=== PATIENT | male | born 1985 | race Two or more races ===

== ENCOUNTER 2021-08-27 14:12 | Emergency (ER) | payer OTHER ==
[2021-08-27 14:33] VITALS: BP 115/72; PULSE 70; TEMP 98.2; BMI 24.5
[2021-08-27] MEDS ORDERED: DIPHTH,PERTUSS(ACELL),TET 0.5 ML DISP.SYRIN IM ONE ×2 (15:23→15:24)
== END 2021-08-27 15:36 | disposition home or self-care (01) ==
LOC: JERFT 14:12 → JER 14:12 → JERFT 15:36
PROC: 3E0234Z Introduction of Serum, Toxoid and Vaccine into Muscle, Percutaneous Approach (ICD-10-PCS; principal; 2021-08-27)
DX: S61.411A Laceration without foreign body of right hand, initial encounter (principal); W26.8XXA Contact with other sharp object(s), not elsewhere classified, initial encounter
CPT/HCPCS: 90471; 90715; 99284-25

== ENCOUNTER 2021-09-08 15:40 | Emergency (ER) | payer OTHER ==
[2021-09-08 15:56] VITALS: BP 107/74; PULSE 64; TEMP 97.8; BMI 27.0
[2021-09-08] MEDS ORDERED: ONDANSETRON 4 MG/2 ML VIAL IVPUSH ONE ×2 (17:31→18:34)
[2021-09-08] MEDS ORDERED: SODIUM CHLORIDE 1,000 ML IV STA ×2 (17:31→18:52)
[2021-09-08] MEDS ORDERED: ONDANSETRON 4 MG/2 ML VIAL ONE ×2 (17:52→18:51)
[2021-09-08 18:09] LABS: BASO % 0.5 % (0-2.0); HEMATOCRIT 42.6 % (35.4-49); HEMOGLOBIN 14.7 GM/dL (11.7-16.9); LYMPH % 15.5 % (8-40); MCH 30.3 pg (25.7-33.7); MCHC 34.6 g/dl (32.0-35.9); MEAN CELL VOLUME 87.6 fl (80-96); MEAN PLT VOLUME 7.7 fl (7.5-11.1); MONO % 6.2 % (3.8-10.2); NEUT % 77.8 % (42.8-82.8); PLATELET COUNT 392 10^3/uL (134-434); RBC 4.86 M/mm3 (4.00-5.60); RDW 13.6 % (11.9-15.9); WHITE BLOOD COUNT 9.9 K/mm3 (4.0-10.0)
[2021-09-08 18:30] LABS: CHLORIDE 105 mmol/L (98-107); SODIUM 140 mmol/L (136-145)
[2021-09-08 18:33] LABS: ALBUMIN 4.8 g/dl (3.4-5.0); ANION GAP 9 MMOL/L (8-16); BLOOD UREA NITROGEN 14.5 mg/dL (7-18); CALCIUM 10.4 mg/dL (8.5-10.1); CO2 27 mmol/L (21-32); GLUCOSE,RANDOM 116 mg/dL (74-106); LIPASE 67 U/L (73-393)
[2021-09-08 18:36] LABS: CREATININE 1.1 mg/dL (0.55-1.3); EPI CELLS 24 /uL (0-25.1); HYALINE CASTS 7 /uL (0-3.1); PH,URINE >= 9.0 (5.0-8.0); SGOT/AST 21 U/L (15-37); SGPT/ALT 40 U/L (13-61); URINE APPEARANCE CLEAR; URINE BACTERIA 15 /uL (0-1359); URINE BILIRUBIN NEGATIVE (NEGATIVE); URINE COLOR YELLOW; URINE GLUCOSE (UA) NEGATIVE (NEGATIVE); URINE KETONE 1+ (NEGATIVE); URINE LEUK ESTERASE NEGATIVE (NEGATIVE); URINE NITRITE NEGATIVE (NEGATIVE); URINE PROTEIN 2+ (NEGATIVE); URINE RBC 11 /uL (0-23.9); URINE WBC 5 /uL (0-25.8)
[2021-09-08 18:38] LABS: BILIRUBIN,TOTAL 1.1 mg/dL (0.2-1); TOT PROT 7.9 g/dl (6.4-8.2)
[2021-09-08 18:39] LABS: ALK PHOS 93 U/L (45-117)
[2021-09-08] MEDS ORDERED: FAMOTIDINE 20 MG/50 ML IVPB 20 MG/50 ML MG IVPB ONE ×2 (18:52→19:08)
[2021-09-08 18:57] LABS: COCAINE, UR NEGATIVE (NEGATIVE); OPIATES, URI NEGATIVE (NEGATIVE); PHENCYCLIDINE,URINE NEGATIVE (NEGATIVE); URINE BARBITURATES NEGATIVE (NEGATIVE)
[2021-09-08 19:24] LABS: METHADONE, UR NEGATIVE (NEGATIVE); URINE AMPHETAMINES NEGATIVE (NEGATIVE); URINE BENZODIAZEPINES NEGATIVE (NEGATIVE)
[2021-09-08] MEDS ORDERED: METOCLOPRAMIDE HCL INJECTION 10 MG/2 ML VIAL ONE (20:30)
[2021-09-08] MEDS ORDERED: METOCLOPRAMIDE HCL INJECTION 10 MG/2 ML VIAL IVPB ONE (20:33)
== END 2021-09-08 23:14 | disposition home or self-care (01) ==
LOC: JER 15:40
PROC: 3E03329 Introduction of Other Anti-infective into Peripheral Vein, Percutaneous Approach (ICD-10-PCS; principal; 2021-09-08)
PROC: 3E033GC Introduction of Other Therapeutic Substance into Peripheral Vein, Percutaneous Approach (ICD-10-PCS; 2021-09-08)
PROC: 3E033GC Introduction of Other Therapeutic Substance into Peripheral Vein, Percutaneous Approach (ICD-10-PCS; 2021-09-08)
PROC: 3E0337Z Introduction of Electrolytic and Water Balance Substance into Peripheral Vein, Percutaneous Approach (ICD-10-PCS; 2021-09-08)
PROC: 3E0337Z Introduction of Electrolytic and Water Balance Substance into Peripheral Vein, Percutaneous Approach (ICD-10-PCS; 2021-09-08)
DX: R11.2 Nausea with vomiting, unspecified (principal)
CPT/HCPCS: 36415; 80053; 80307; 81003; 83690; 85025; 99284-25

== ENCOUNTER 2023-03-29 09:29 | Emergency (ER) | payer OTHER ==
[2023-03-29 09:38] VITALS: BP 122/78; PULSE 68; RESP 18; TEMP 98.3; BMI 24.3
[2023-03-29] MEDS ORDERED: LIDOCAINE 5% TOPICAL PATCH TP ONE (10:31)
[2023-03-29] MEDS ORDERED: KETOROLAC TROMETHAMINE 30 MG/1 ML VIAL IM ONE (10:31)
[2023-03-29] MEDS ORDERED: LIDOCAINE 5% TOPICAL PATCH ONE (10:43)
[2023-03-29] MEDS ORDERED: KETOROLAC TROMETHAMINE 60 MG/2 ML VIAL ONE (10:43)
[2023-03-29] MEDS ORDERED: LIDOCAINE PATCH REMOVAL MC SCH (22:00)
== END 2023-03-29 11:42 | disposition home or self-care (01) ==
LOC: JERFT 09:29
PROC: 3E0233Z Introduction of Anti-inflammatory into Muscle, Percutaneous Approach (ICD-10-PCS; principal; 2023-03-29)
DX: S39.012A Strain of muscle, fascia and tendon of lower back, initial encounter (principal); X50.0XXA Overexertion from strenuous movement or load, initial encounter
CPT/HCPCS: 72100-TC-FY; 99284-25

== ENCOUNTER 2023-11-29 09:51 | Observation (INO) | payer OTHER ==
[2023-11-29] MEDS ORDERED: FAMOTIDINE 20 MG/50 ML IVPB 20 MG/50 ML MG IVPB ONE (10:28)
[2023-11-29] MEDS ORDERED: ONDANSETRON 4 MG/2 ML VIAL ONE (10:28)
[2023-11-29] MEDS ORDERED: ACETAMINOPHEN INJECTION 100 ML IVPB ONE ×2 (10:28→12:18)
[2023-11-29] MEDS: ONDANSETRON 4 MG/2 ML VIAL IVPUSH ONE (10:39)
[2023-11-29] MEDS: SODIUM CHLORIDE 0.9% 500 ML INFUS.BAG IV ONE (10:39)
[2023-11-29] MEDS: FAMOTIDINE 20 MG/50 ML IVPB 20 MG/50 ML MG IVPB ONE (10:39)
[2023-11-29 11:16] LABS: BASO % 0.2 % (0-2.0); HEMATOCRIT 44.6 % (35.4-49); LYMPH % 15.6 % (8-40); MCH 29.7 pg (25.7-33.7); MCHC 33.5 g/dl (32.0-35.9); MEAN CELL VOLUME 88.5 fl (80-96); NEUT % 77.2 % (42.8-82.8); PLATELET COUNT 348 10^3/uL (134-434); RBC 5.04 M/mm3 (4.00-5.60); RDW 13.6 % (11.9-15.9); WHITE BLOOD COUNT 13.1 K/mm3 (4.0-10.0)
[2023-11-29 11:45] LABS: POTASSIUM 3.5 mmol/L (3.5-5.1)
[2023-11-29 11:48] LABS: BLOOD UREA NITROGEN 16.3 mg/dL (7-18); CALCIUM 9.5 mg/dL (8.5-10.1)
[2023-11-29 11:49] LABS: ALBUMIN 4.2 g/dl (3.4-5.0)
[2023-11-29 11:51] LABS: CREATININE 1.2 mg/dL (0.55-1.3)
[2023-11-29 11:52] LABS: BILIRUBIN,TOTAL 2.5 mg/dL (0.2-1); TOT PROT 7.1 g/dl (6.4-8.2)
[2023-11-29] MEDS: ACETAMINOPHEN 1000 MG/100 ML BAG IVPB ONE ×2 (12:17→22:13)
[2023-11-29] MEDS: METOCLOPRAMIDE HCL INJECTION 10 MG/2 ML VIAL IVPUSH ONE (14:28)
[2023-11-29] MEDS ORDERED: METOCLOPRAMIDE HCL INJECTION 10 MG/2 ML VIAL ONE (14:28)
[2023-11-29] MEDS: morphine CARPU-JECT 2 MG/1 ML DISP.SYRIN IVPUSH ONE (17:57)
[2023-11-29 20:14] LABS: BILIRUBIN,DIRECT 0.4 mg/dL (0.0-0.2)
[2023-11-29 22:01] LABS: URINE APPEARANCE CLEAR; URINE BILIRUBIN NEGATIVE (NEGATIVE); URINE COLOR YELLOW; URINE GLUCOSE (UA) NEGATIVE (NEGATIVE); URINE KETONE 2+ (NEGATIVE); URINE LEUK ESTERASE NEGATIVE (NEGATIVE); URINE NITRITE NEGATIVE (NEGATIVE); URINE PROTEIN TRACE (NEGATIVE)
[2023-11-29] MEDS: ONDANSETRON 4 MG/2 ML VIAL IVPB ONE (22:12)
[2023-11-29] MEDS: PANTOPRAZOLE SODIUM 40 MG VIAL IVPUSH ONE (22:12)
[2023-11-29] MEDS: MAG HYDROX/AL HYDROX/SIMETH 30 ML UNIT-DOSE CUP PO ONE (22:12)
[2023-11-29] MEDS: SODIUM CHLORIDE 1,000 ML IV STA (22:14)
[2023-11-29 22:23] LABS: METHADONE, UR NEGATIVE (NEGATIVE); PHENCYCLIDINE,URINE NEGATIVE (NEGATIVE); URINE AMPHETAMINES NEGATIVE (NEGATIVE); URINE BENZODIAZEPINES NEGATIVE (NEGATIVE)
[2023-11-29 22:24] LABS: COCAINE, UR NEGATIVE (NEGATIVE); URINE BARBITURATES NEGATIVE (NEGATIVE)
[2023-11-29 22:36] LABS: OPIATES, URI POSITIVE (NEGATIVE)
[2023-11-30 01:12] VITALS: BMI 23.8
[2023-11-30] MEDS ORDERED: ACETAMINOPHEN 1000 MG/100 ML BAG IVPB PRN (04:00)
[2023-11-30] MEDS: SODIUM CHLORIDE 1,000 ML IV SCH (05:45)
[2023-11-30] MEDS: ACETAMINOPHEN 1000 MG/100 ML BAG IVPB PRN (05:45)
[2023-11-30] MEDS: ONDANSETRON 4 MG/2 ML VIAL IVPUSH PRN (05:51)
[2023-11-30] MEDS ORDERED: ACETAMINOPHEN 325 MG TABLET (FP) PO PRN (08:51)
[2023-11-30 09:12] VITALS: BP 154/84; PULSE 51; RESP 19; TEMP 98.7
[2023-11-30 09:26] LABS: HEMATOCRIT 41.6 % (35.4-49); HEMOGLOBIN 13.8 GM/dL (11.7-16.9); MCH 29.6 pg (25.7-33.7); MCHC 33.1 g/dl (32.0-35.9); MEAN CELL VOLUME 89.6 fl (80-96); MEAN PLT VOLUME 7.9 fl (7.5-11.1); PLATELET COUNT 322 10^3/uL (134-434); RBC 4.64 M/mm3 (4.00-5.60); RDW 13.9 % (11.9-15.9); WHITE BLOOD COUNT 13.1 K/mm3 (4.0-10.0)
[2023-11-30 09:56] LABS: POTASSIUM 3.3 mmol/L (3.5-5.1)
[2023-11-30 09:59] LABS: CALCIUM 8.5 mg/dL (8.5-10.1)
[2023-11-30 10:00] LABS: MAGNESIUM 2.1 mg/dL (1.8-2.4)
[2023-11-30 10:01] LABS: ALBUMIN 3.8 g/dl (3.4-5.0)
[2023-11-30 10:03] LABS: PHOSPHOROUS 2.2 mg/dL (2.5-4.9)
[2023-11-30 10:04] LABS: CREATININE 1.1 mg/dL (0.55-1.3)
[2023-11-30 10:07] LABS: TOT PROT 6.6 g/dl (6.4-8.2)
[2023-11-30] MEDS: POTASSIUM CHLORIDE TABS 20 MEQ TABLET.ER (FP) PO ONE (10:16)
[2023-11-30] MEDS: FAMOTIDINE 20 MG/50 ML IVPB 20 MG/50 ML MG IVPB SCH (10:18)
[2023-11-30] MEDS: ACETAMINOPHEN 325 MG TABLET (FP) PO PRN (11:33)
[2023-11-30] MEDS: NAPH,MB-DB/K PH,MBDB POWDER PACKET PO ONE (11:33)
== END 2023-11-30 14:08 | disposition home or self-care (01) ==
LOC: JER 09:51 → JERBED 17:21 → UNDOADMOB 17:21 → J5S 18:21 → JERBED 18:21 → INTOOBSV 11-30 04:09 → OBSVTOIN 11-30 04:09 → J5S 11-30 10:22 → JERBED 11-30 10:22
PROVIDERS: ADMIT Internal Medicine; ATTEND Nurse Practitioner Acute Care
PROC: 3E033NZ Introduction of Analgesics, Hypnotics, Sedatives into Peripheral Vein, Percutaneous Approach (ICD-10-PCS; principal; 2023-11-30)
PROC: 3E033GC Introduction of Other Therapeutic Substance into Peripheral Vein, Percutaneous Approach (ICD-10-PCS; 2023-11-30)
DX: F12.288 Cannabis dependence with other cannabis-induced disorder (principal); R11.2 Nausea with vomiting, unspecified; F41.9 Anxiety disorder, unspecified
CPT/HCPCS: 36415; 74177-TC; 80053; 80307; 81003; 82248; 83690; 83735; 84100; 85025; 85027; 87086; 93005; 93010; 96361; 96365; 96366; 96375; 96376; 99285-25; G0378; J0131; Q9967

== ENCOUNTER 2025-03-16 22:45 | Emergency (ER) | payer OTHER ==
[2025-03-16 22:59] VITALS: BP 129/86; PULSE 100; RESP 18; TEMP 98.3; BMI 21.2
[2025-03-17] MEDS ORDERED: HALOPERIDOL LACTATE 5 MG/ML ONE (00:25)
[2025-03-17] MEDS: HALOPERIDOL LACTATE 5 MG/ML IVPUSH ONE (00:33)
[2025-03-17 00:44] LABS: MCHC 34.8 g/dl (32.3-36.5); MEAN CELL VOLUME 86.9 fl (79.0-92.2); MEAN PLT VOLUME 9.4 fl (9.4-12.4); RDW 13.0 % (12.0-15.6)
[2025-03-17 01:11] LABS: CO2 27.0 mmol/L (21-32); GLUCOSE,RANDOM 106.0 mg/dL (74-106)
[2025-03-17 01:14] LABS: CREATININE 1.3 mg/dL (0.55-1.3)
[2025-03-17] MEDS ORDERED: POTASSIUM CHLORIDE TABS 20 MEQ TABLET.ER (FP) PO ONE (02:19)
[2025-03-17] MEDS: POTASSIUM CHLORIDE TABS 20 MEQ TABLET.ER (FP) PO ONE (02:33)
== END 2025-03-17 02:36 | disposition home or self-care (01) ==
LOC: JER 22:45
PROC: 3E033GC Introduction of Other Therapeutic Substance into Peripheral Vein, Percutaneous Approach (ICD-10-PCS; principal; 2025-03-17)
DX: R11.15 Cyclical vomiting syndrome unrelated to migraine (principal); R10.13 Epigastric pain
CPT/HCPCS: 36415; 80048; 83605; 85027; 86850; 86900; 86901; 99284-25